=== PATIENT | female | born 1995 | race Caucasian/White ===

== ENCOUNTER 2019-06-09 21:58 | Inpatient (IN) | payer OTHER ==
[~2019-06-09] VITALS: Ht 157.5 cm; Wt 49.9 kg
[~2019-06-09 21:58] MED LIST: DERMOPLAST PA82.5 ML TP; SILVADENE20 GM TP
[2019-06-09] MEDS ORDERED: COPAXONE40 MG/1 ML (22:03)
[2019-06-09] MEDS ORDERED: LUTERA-28 TABL1 EACH (22:04)
[2019-06-13] MEDS ORDERED: INTESTINEX680 M1 PO (10:50)
[2019-06-13] MEDS ORDERED: PEPCID20 MG PO (10:51)
== END 2019-06-13 17:42 | disposition home or self-care (01) | DRG 153 ==
LOC: ER 21:58 → SEC-K 06-10 09:06 → SURG-SUITE 06-10 09:06
PROVIDERS: ADMIT Internal Medicine
PROC: BW2FY0Z Computerized Tomography (CT Scan) of Neck using Other Contrast, Unenhanced and Enhanced (ICD-10-PCS; principal; 2019-06-10)
DX: J36 Peritonsillar abscess (principal); G35 Multiple sclerosis; J35.1 Hypertrophy of tonsils; R13.19 Other dysphagia